=== PATIENT | male | born 1995 | race Caucasian/White ===

== ENCOUNTER 2018-03-30 00:22 | Emergency (ER) | payer BC ==
[~2018-03-30] VITALS: Ht 182.8 cm; Wt 102.1 kg
--- NOTE | ~2018-03-30 | EKG ---
[place], [place] ELECTROCARDIOGRAM REPORT NAME: JASON POTTER UNIT #: [id number] ROOM: DOCTOR: EPIPHANY DRAFT REPORT BIRTHDATE: [birth year] [facility] Test Date: 2018-03-30 Test Time: 00:42:01 Pat Name: JASON POTTER Department: Room: Gender: Control Room Helper: Melo Retana : 1995 Requested By: STEVEN ZAMUDIO Order Number: [id number] Reading MD: Ruel Bush MD Measurements Intervals [place] Rate: 94 P: 39 FL: 162 QRS: 61 QRSD: 108 T: 6 QT: 345 QTc: 432 Interpretive Statements Sinus rhythm Borderline ST elevation, anterior leads Electronically Signed On 04-01-2018 8:10:24 PST by Ruel Bush MD CM:EKGRPT:ELECTROCARDIOGRAM REPORT [id number] STEVEN ZAMUDIO MD EPIPHANY DRAFT REPORT STEVEN ZAMUDIO MD
--- NOTE | ~2018-03-30 | EKG ---
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
--- NOTE | ~2018-03-30 | EKG ---
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
[~2018-03-30 00:22] MED LIST: CIPRODEX 0.3%-7.5 ML OT; CLARITIN10 MG PO; MOTRIN400 MG PO; MOTRIN600 MG PO; Motrin,Rufen800 MG PO
[2018-03-30 00:39] LABS: BASO # 0.1 10*3/uL (0.0-0.1); BASO % 0.4 % (0.0-1.0); EOS # 0.3 10*3/uL (0.0-0.4); EOS % 2.4 % (1.0-4.0); HEMATOCRIT 45.2 % (42.0-52.0); HEMOGLOBIN 16.1 g/dl (14.0-18.0); LYMPH # 2.4 10*3/uL (1.3-4.4); LYMPH % 20.3 % (27.0-41.0); MEAN CELL VOLUME 87.6 fl (80.0-94.0); MEAN CORPUSCULAR HGB 31.2 pg (27.0-31.0); MEAN CORPUSCULAR HGB CONC 35.6 g/dl (33.0-37.0); MEAN PLATELET VOLUME 9.6 fl (9.6-12.3); MONO # 0.6 10*3/uL (0.1-1.0); MONO % 5.1 % (3.0-9.0); NEUT # 8.3 10*3/uL (2.3-7.9); NEUT % 71.4 % (47.0-73.0); PLATELET COUNT AUTOMATED 290 10*3/uL (130-400); RED BLOOD COUNT 5.16 10*6/uL (4.50-5.90); RED CELL DISTRI WIDTH 12.2 % (0-14.5); WHITE BLOOD COUNT 11.7 10*3/uL (4.8-10.8)
[2018-03-30 00:54] LABS: CHOLESTEROL 192 mg/dL (<200); HDL CHOLESTEROL 29 mg/dl (40-60); LDL CHOLESTEROL 135 mg/dL (9-159); TRIGLYCERIDES 139 mg/dl (<150); VLDL CHOLESTEROL 28 mg/dL (6-40)
[2018-03-30 00:56] LABS: ALBUMIN 3.8 gm/dl (3.1-4.5); ALKALINE PHOSPHATASE 118 U/L (45-117); BUN 10 mg/dl (7-24); CHLORIDE 103 mmol/L (98-107); CREATININE 1.14 mg/dL (0.70-1.30); POTASSIUM 3.6 mmol/L (3.5-5.1); SGOT/AST 26 IU/L (3-35); SGPT/ALT 101 U/L (12-78); SODIUM 138 mmol/L (136-145); TOTAL PROTEIN 8.1 gm/dL (6.4-8.2)
[2018-03-30 00:57] LABS: ACT PARTIAL THROMBO TIME 23.9 SECONDS (20.8-31.5); TROPONIN I < 0.015 ng/ml (<0.045)
[2018-03-30] MEDS ORDERED: PROTONIX40 MG PO (02:27)
== END 2018-03-30 02:22 | disposition home or self-care (01) ==
LOC: ED 00:22
PROVIDERS: Emergency Medicine Emergency Medical Services
DX: K21.9 Gastro-esophageal reflux disease without esophagitis (principal); R94.5 Abnormal results of liver function studies; I10 Essential (primary) hypertension; J45.909 Unspecified asthma, uncomplicated

== ENCOUNTER → 2018-04-02 | Outpatient (CLI) | payer BC ==
[~2018-04-02] MED LIST changes: +PROTONIX40 MG PO
== END | disposition home or self-care (01) ==
LOC: US 06:17
DX: K76.0 Fatty (change of) liver, not elsewhere classified (principal); K21.9 Gastro-esophageal reflux disease without esophagitis

== ENCOUNTER 2022-03-21 10:10 | Emergency (ER) | payer BC ==
[2022-03-21 12:12] LABS: BASO % 0.2 % (0.0-1.0); EOS # 0.1 10*3/uL (0.0-0.4); EOS % 1.9 % (1.0-4.0); HEMATOCRIT 41.9 % (42.0-52.0); LYMPH # 0.8 10*3/uL (1.3-4.4); LYMPH % 16.3 % (27.0-41.0); MEAN CORPUSCULAR HGB 31.2 pg (27.0-31.0); MEAN CORPUSCULAR HGB CONC 35.1 g/dl (33.0-37.0); MEAN PLATELET VOLUME 9.8 fl (9.6-12.3); MONO # 0.4 10*3/uL (0.1-1.0); NEUT # 3.5 10*3/uL (2.3-7.9); NEUT % 72.4 % (47.0-73.0); PLATELET COUNT AUTOMATED 165 10*3/uL (130-400); RED BLOOD COUNT 4.71 10*6/uL (4.50-5.90); RED CELL DISTRI WIDTH 12.2 % (0-14.5); WHITE BLOOD COUNT 4.8 10*3/uL (4.8-10.8)
[2022-03-21 12:28] LABS: ALKALINE PHOSPHATASE 93 U/L (46-116); BUN 13 mg/dl (9-23); CHLORIDE 102 mmol/L (98-107); CREATININE 1.34 mg/dL (0.70-1.30); POTASSIUM 4.2 mmol/L (3.4-5.1); SGPT/ALT 70 U/L (10-49); TOTAL PROTEIN 7.4 gm/dL (6.0-8.0)
[2022-03-21] MEDS ORDERED: ZITHROMAX250 MG PO (13:45)
== END 2022-03-21 13:50 | disposition home or self-care (01) ==
LOC: ED 10:10
PROVIDERS: Physician Assistant
DX: J98.9 Respiratory disorder, unspecified (principal); Z20.822 Contact with and (suspected) exposure to COVID-19